=== PATIENT | male | born 1990 | race Caucasian/White ===

== ENCOUNTER 2019-05-02 14:12 | Emergency (ER) | payer SELFPAY ==
[~2019-05-02] VITALS: Ht 180.3 cm; Wt 113.4 kg
--- NOTE | 2019-05-02 15:10 | ED Lower Extremity ---
General Chief Complaint: Lower Extremity Stated Complaint: LEG SWELLING Nursing Triage Note: pt noticed right lower leg/ankle swelling and redness on Wednesday. He marked the area and the redness has increased significantly. PT states pain is 8/10. Nursing Sepsis Screen: No Definite Risk Source: patient Exam Limitations: no limitations History of Present Illness Date Seen by Provider: May 02, 2019 Time Seen by Provider: 15:09 Initial Comments To ER with right leg redness pain and swelling. This began on Wednesday 2 days ago. He outlined the area yesterday, since then the area of redness has increased significantly, he denies any known cause. This began as a small red bump over the lateral malleolus without any known preceding injury. He is otherwise healthy without diabetes or comorbidity. Onset: just prior to arrival Severity: moderate Pain/Injury Location: right leg Method of Injury: unknown Modifying Factors: Worse With Movement Allergies and Home Medications Allergies Coded Allergies: morphine (Verified Allergy, Unknown, 05/02/19) Home Medications Penicillin V Potassium 500 Mg Tablet, 500 MG PO Q6H Prescribed by: JOAQUÍN RODRIGUEZ on 05/02/19 1553 Sulfamethoxazole/Trimethoprim 1 Each Tablet, 1 EACH PO BID Prescribed by: JOAQUÍN RODRIGUEZ on 05/02/19 1553 Patient Home Medication List Home Medication List Reviewed: Yes Review of Systems Constitutional: see HPI EENTM: see HPI Respiratory: no symptoms reported Cardiovascular: no symptoms reported Genitourinary: no symptoms reported Musculoskeletal: see HPI Skin: no symptoms reported Psychiatric/Neurological: No Symptoms Reported, Emotional Problems Past Jvtyeyo-Eyshcq-Jhezsr Hx Patient Social History Alcohol Use: Occasionally Uses Recreational Drug Use: No Smoking Status: Never a Smoker Recent Foreign Travel: No Contact w/Someone Who Travel: No Recent Infectious Disease Expo: No Physical Exam Vital Signs Vital Signs - First Documented 05/02/19 14:19 Temp 98.6 Pulse 122 Resp 20 B/P (MAP) 169/96 (120) Pulse Ox 97 O2 Delivery Room Air Capillary Refill : Less Than 3 Seconds Height, Weight, BMI Height: 5'11.00" Weight: 250lbs. oz. 113.736338ee; BMI Method:Stated General Appearance: WD/WN, no apparent distress HEENT: PERRL/EOMI, normal ENT inspection Respiratory: no respiratory distress, no accessory muscle use Hips: bilateral hip non-tender, bilateral hip normal inspection, bilateral hip normal range of motion Legs: right leg pain, right leg soft tissue tenderness, right leg swelling (redness that is well demarcated, swelling and pain to the right leg and foot. Primarily affects the dorsum of the foot and the anterior leg.) Knees: bilateral knee non-tender, bilateral knee normal inspection, bilateral knee normal range of motion Ankles: left ankle non-tender, left ankle normal inspection; bilateral ankle normal range of motion; right ankle swelling Feet: left foot non-tender, left foot normal inspection, left foot normal range of motion; right foot pain, right foot swelling Neurologic/Psychiatric: alert, normal mood/affect, oriented x 3 Skin: normal color, warm/dry Progress/Results/Core Measures Results/Orders Lab Results Laboratory Tests Test 05/02/19 14:40 05/02/19 15:14 Range/Units White Blood Count 9.5 4.3-11.0 10^3/uL Red Blood Count 4.49 4.35-5.85 10^6/uL Hemoglobin 13.6 13.3-17.7 G/DL Hematocrit 41 40-54 % Mean Corpuscular Volume 92 80-99 FL Mean Corpuscular Hemoglobin 30 25-34 PG Mean Corpuscular Hemoglobin Concent 33 32-36 G/DL Red Cell Distribution Width 13.0 10.0-14.5 % Platelet Count 259 130-400 10^3/uL Mean Platelet Volume 10.9 H 7.4-10.4 FL Neutrophils (%) (Auto) 68 42-75 % Lymphocytes (%) (Auto) 15 12-44 % Monocytes (%) (Auto) 15 H 0-12 % Eosinophils (%) (Auto) 2 0-10 % Basophils (%) (Auto) 0 0-10 % Neutrophils # (Auto) 6.5 1.8-7.8 X 10^3 Lymphocytes # (Auto) 1.4 1.0-4.0 X 10^3 Monocytes # (Auto) 1.4 H 0.0-1.0 X 10^3 Eosinophils # (Auto) 0.2 0.0-0.3 10^3/uL Basophils # (Auto) 0.0 0.0-0.1 10^3/uL Sodium Level 136 135-145 MMOL/L Potassium Level 3.5 L 3.6-5.0 MMOL/L Chloride Level 103 98-107 MMOL/L Carbon Dioxide Level 24 21-32 MMOL/L Anion Gap 9 5-14 MMOL/L Blood Urea Nitrogen 7 7-18 MG/DL Creatinine 1.10 0.60-1.30 MG/DL Estimat Glomerular Filtration Rate > 60 BUN/Creatinine Ratio 6 Glucose Level 123 H 70-105 MG/DL Calcium Level 9.6 8.5-10.1 MG/DL Corrected Calcium 9.5 8.5-10.1 MG/DL Total Bilirubin 0.6 0.1-1.0 MG/DL Aspartate Amino Transf (AST/SGOT) 16 5-34 U/L Alanine Aminotransferase (ALT/SGPT) 19 0-55 U/L Alkaline Phosphatase 58 40-136 U/L Total Protein 7.0 6.4-8.2 GM/DL Albumin 4.1 3.2-4.5 GM/DL Lactic Acid Level 1.93 0.50-2.00 MMOL/L My Orders Orders - JOAQUÍN RODRIGUEZ [employer] Cbc With Automated Diff (05/02/19 15:02) Comprehensive Metabolic Panel (05/02/19 15:02) Blood Culture (05/02/19 15:02) Lactic Acid Analyzer (05/02/19 15:02) Ua Culture If Indicated (05/02/19 15:02) Ed Iv/Invasive Line Start (05/02/19 15:02) Hydrocodone/Apap 5/325 Tablet (Lortab 5 (05/02/19 15:15) Ns Iv 1000 Ml (Sodium Chloride 0.9%) (05/02/19 15:15) Cefazolin 2 Gm/50 Ml Ns (Ancef 2 Gm/50 M (05/02/19 15:15) Medications Given in ED Current Medications Medications Dose Ordered Sig/Kat Route Start Time Stop Time Status Last Admin Dose Admin Acetaminophen/ Hydrocodone Bitart 1 tab ONCE ONCE PO 05/02/19 15:15 05/02/19 15:16 DC 05/02/19 15:34 1 TAB Cefazolin Sodium 50 ml @ 140 mls/hr ONCE ONCE IV 05/02/19 15:15 05/02/19 15:36 DC 05/02/19 15:50 140 MLS/HR Vital Signs/I&O 05/02/19 14:19 Temp 98.6 Pulse 122 Resp 20 B/P (MAP) 169/96 (120) Pulse Ox 97 O2 Delivery Room Air Blood Pressure Mean: 120 Departure Impression Primary Impression: Erysipelas of right lower extremity Disposition: HOME, SELF-CARE Condition: Stable Departure-Patient Inst. Decision time for Depature: 15:49 Patient Instructions: Cellulitis (Skin Infection), Adult (DC) Add. Discharge Instructions: 1. Return to ER for any concerns such as increasing pain redness or fever. Follow-up with your doctor later this week for recheck. Antibiotics as directed starting TODAY. Go directly to [facility] to fill these on your way home. Return to ER on for wound check ll discharge instructions reviewed with patient and/or family. Voiced understanding. Scripts Hydrocodone/Acetaminophen ([place] 5-325 Tablet) 1 Each Tablet 1 TAB PO Q6H for Pain MDD 10 TABS for 7 Days, #10 TAB do not fill unless penicillin and bactrim is also filled. Prov: JOAQUÍN RODRIGUEZ APRN 05/02/19 Penicillin V Potassium (Penicillin V Potassium) 500 Mg Tablet 500 MG PO Q6H, #28 TAB Prov: JOAQUÍN RODRIGUEZ APRN 05/02/19 Sulfamethoxazole/Trimethoprim (Bactrim Ds Tablet) 1 Each Tablet 1 EACH PO BID, #14 TAB Prov: JOAQUÍN RODRIGUEZ APRN 05/02/19 Work/School Note: Work Release Form Date Seen in the Emergency Department: May 02, 2019 Return to Work: May 05, 2019 JOAQUÍN RODRIGUEZ APRN May 02, 2019 15:10
[2019-05-02] MEDS ORDERED: NS IV 1000 ML 1,000 ML IV SCH (15:15)
[2019-05-02] MEDS ORDERED: ceFAZolin 2 GM/50 ML NS 50 ML IV ONE (15:15)
[2019-05-02] MEDS ORDERED: HYDROcodone/APAP 5 MG/325 MG (LORTAB) TAB PO ONE (15:15)
[2019-05-02 15:18] LABS: BASOPHILS % (AUTO) 0 % (0-10); EOSINOPHILS # (AUTO) 0.2 10^3/uL (0.0-0.3); EOSINOPHILS % (AUTO) 2 % (0-10); HEMATOCRIT 41 % (40-54); HEMOGLOBIN 13.6 G/DL (13.3-17.7); LYMPHOCYTES # (AUTO) 1.4 X 10^3 (1.0-4.0); LYMPHOCYTES % (AUTO) 15 % (12-44); MEAN CORPUSCULAR HEMOGLOBIN 30 PG (25-34); MEAN CORPUSCULAR HGB CONC 33 G/DL (32-36); MEAN CORPUSCULAR VOLUME 92 FL (80-99); MEAN PLATELET VOLUME 10.9 FL (7.4-10.4); MONOCYTES # (AUTO) 1.4 X 10^3 (0.0-1.0); MONOCYTES % (AUTO) 15 % (0-12); NEUTROPHILS # (AUTO) 6.5 X 10^3 (1.8-7.8); NEUTROPHILS % (AUTO) 68 % (42-75); PLATELET COUNT 259 10^3/uL (130-400); WHITE BLOOD COUNT 9.5 10^3/uL (4.3-11.0)
[2019-05-02 15:23] LABS: ALANINE AMINOTRANSFERASE 19 U/L (0-55); ALBUMIN 4.1 GM/DL (3.2-4.5); ALKALINE PHOSPHATASE 58 U/L (40-136); BILIRUBIN,TOTAL 0.6 MG/DL (0.1-1.0); BUN/CREATININE RATIO 6; CALCIUM 9.6 MG/DL (8.5-10.1); CARBON DIOXIDE 24 MMOL/L (21-32); CHLORIDE 103 MMOL/L (98-107); GFR ESTIMATED > 60; GLUCOSE 123 MG/DL (70-105); POTASSIUM 3.5 MMOL/L (3.6-5.0); SODIUM 136 MMOL/L (135-145)
[2019-05-02] MEDS ORDERED: PENI500T PO (15:53)
[2019-05-02] MEDS ORDERED: SULF1TAB35 PO (15:53)
[2019-05-02] MEDS ORDERED: HYDR-4226 PO (16:17)
[2019-05-02 16:29] VITALS: BP 102/63
== END 2019-05-02 16:29 | disposition home or self-care (01) ==
LOC: ER 14:13
DX: A46 Erysipelas (principal); Z88.5 Allergy status to narcotic agent
CPT/HCPCS: 36415; 80053; 83605; 85025; 87040; 96361; 96365